=== PATIENT | female | born 1965 | race Caucasian/White ===

== ENCOUNTER 2020-08-14 17:10 | Emergency (ER) | payer MEDICAID ==
[~2020-08-14] VITALS: Ht 165.1 cm; Wt 80.5 kg
[~2020-08-14 17:10] MED LIST: CIPR-279 PO
[2020-08-14] MEDS ORDERED: ACETAMINOPHEN 500 MG TABLET PO ONE (17:45)
[2020-08-14] MEDS ORDERED: SODIUM CHLORIDE 0.9% 1,000 ML IV ONE (17:45)
[2020-08-14 17:57] LABS: BASOPHILS % (AUTO) 0.5 % (0.0-2.0); EOSINOPHILS % (AUTO) 1.1 % (1.0-6.0); HEMATOCRIT 36.9 % (36-46); HEMOGLOBIN 12.2 g/dL (12.0-16.0); MEAN CORPUSCULAR HEMOGLOBIN 30.2 pg (26.0-34.0); MEAN CORPUSCULAR HGB CONC 33.1 G/dL (31.0-37.0); MEAN CORPUSCULAR VOLUME 91 fL (80-100); MONOCYTES # (AUTO) 0.9 K/uL (0.1-1.0); MONOCYTES % (AUTO) 10.3 % (2.0-9.0); NEUTROPHILS # (AUTO) 5.7 K/uL (1.8-7.7); NEUTROPHILS % (AUTO) 65.1 % (40.0-70.0); PLATELET COUNT (AUTO) 349 K/uL (150-450); RED BLOOD CELL COUNT(AUTO) 4.04 MIL/uL (4.00-5.20); RED CELL DISTRIBUTION WIDTH 13.3 % (11.5-14.5)
[2020-08-14 18:03] LABS: COVID AG,FIA SOURCE NASOPHARYNGEAL
[2020-08-14 18:06] LABS: CALCIUM, TOTAL 8.7 mg/dL (8.8-10.5); POTASSIUM 3.8 mmol/L (3.5-5.1)
[2020-08-14 18:11] LABS: ALBUMIN 3.7 g/dL (3.4-5.0); BILIRUBIN,TOTAL 0.3 mg/dL (0.1-1.0); TOTAL PROTEIN, SERUM 7.1 g/dL (6.4-8.2)
[2020-08-14 18:24] LABS: APPEARANCE,URINE CLOUDY (CLEAR); BILIRUBIN,URINE NEGATIVE (NEGATIVE); GLUCOSE, URINE (UA) NEGATIVE (NEGATIVE); KETONES,URINE NEGATIVE (NEGATIVE); LEUKOCYTE ESTERASE ,URINE LARGE (NEGATIVE); OCCULT BLOOD,URINE LARGE (NEGATIVE); PROTEIN,URINE POS 1+ (NEGATIVE)
[2020-08-14 18:32] LABS: NITRATE,URINE POSITIVE (NEGATIVE)
[2020-08-14 18:33] LABS: BACTERIA,URINE Many /HPF (None Seen); SQUAMOUS EPITHELIAL CELL,UR Few /LPF (None Seen); WBC,URINE 51-100 /HPF (0-5)
[2020-08-14] MEDS ORDERED: LEVOFLOXACIN 250 MG TABLET PO ONE (18:45)
[2020-08-14 19:23] VITALS: BP 128/70
== END 2020-08-14 21:11 | disposition home or self-care (01) ==
LOC: EMS 17:10
DX: N39.0 Urinary tract infection, site not specified (principal); Z88.6 Allergy status to analgesic agent; Z79.899 Other long term (current) drug therapy; Z20.822 Contact with and (suspected) exposure to COVID-19
CPT/HCPCS: 36415; 80053; 81001; 85025; 87077; 87086; 87186; 87426; 96360; 99283; J7030